=== PATIENT | male | born 1955 | race Caucasian/White ===

== ENCOUNTER 2020-04-30 10:58 | Outpatient (CLI) | payer SELFPAY ==
--- NOTE | 2020-04-30 11:03 | XR_ITS ---
WS: [id number] XR chest 2V* [id number] REASON FOR EXAM: COUGH/FEVER FINDINGS: Compared with previous examination of 05/15/2018, there is a linear opacity in the left axillary ciro on. There is subtle increased density in the right periphery of the mid right lung the axillary level . The heart and mediastinum are within normal limits. The bony thorax is intact. XR/XR chest 2V* [id number] IMPRESSION: Bilateral lung abnormalities as above. Chronicity of these changes is uncertain . Abnormality on the left has more the appearance of platelike atelectasis yang luis alberto the abnormality on the right is more suggestive of a developing infiltrativ e process. Follow-up upright PA and lateral chest as clinically warranted.
== END 2020-04-30 10:59 | disposition home or self-care (01) ==
LOC: RAD 11:00
PROVIDERS: Visit Provider Nurse Practitioner Family
DX: R05 Cough (principal); R50.9 Fever, unspecified
CPT/HCPCS: 71046

== ENCOUNTER 2020-05-30 10:41 | Outpatient (CLI) | payer SELFPAY ==
--- NOTE | 2020-05-30 11:11 | CT_ITS ---
WS: [id number] CT scan of the abdomen without Oral and IV contrast. Additional two-dimensional coronal and sagittal reconstruction was performed. 05/30/2020 Clinical Data: ABDOMINAL BLOATING AND PAIN Comparison: None. DLP: 858.[address] scans at [facility] use at least one of these dose optimization techniques: automat ed exposure control; mA and/or kV adjustment per patient size (includes targeted exams where dose is matched to clinical indication); or iterative reconstruction. Findings: Patchy opacities in the lungs may indicate pneumonia. The lower lungs show no nodules, mass es or effusions. The liver, gallbladder, spleen and pancreas are normal. There is a adrenal nodule on the right measur ing 2.57 cm. The left adrenal is normal. The kidneys show no masses, hydronephrosis or renal calculi. There is probably a cyst at the superior pole of the right kidney measuring 2.9 cm The abdominal aorta is normal in size. No appendicitis is seen. The stomach, small bowel and visualized colon show no abnormalities. No abscess, adenopathy, ascites, mass, obstruction or free air is seen.. 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 CT/CT abdomen wo con [id number] Impression: 1. Patchy opacities in both lower lobes which may indicate minimal pneumonia. 2. Negative for acute intra-abdominal abnormalities.
[2020-05-30 12:43] LABS: Basophils # 0.1 10^3/uL (0.0-0.1); Eosinophils # 0.4 10^3/uL (0.0-0.8); Eosinophils % 6.6 %; Hematocrit 41.5 % (42.0-52.0); Hemoglobin 13.3 g/dL (11.7-16.6); Lymphocytes # 1.7 10^3/uL (0.8-4.8); Lymphocytes % 28.9 %; Mean Corpuscular Hemoglobin 27.9 pg (28.0-34.0); Mean Platelet Volume 8.6 fL (7.4-10.4); Monocytes # 0.9 10^3/uL (0.2-0.9); Monocytes % 14.4 %; Neutrophils # 2.83 10^3/uL (1.8-7.7); Neutrophils % 47.9 %; Nucleated Red Blood Cells % 0 %; Platelet Count 365 10^3/cmm (130-400); Red Blood Count 4.77 10^6/uL (4.1-5.3); Red Cell Distribution Width 14.2 % (12.1-15.1); White Blood Count 5.9 10^3/uL (4.0-10.0)
[2020-05-30 13:02] LABS: Alanine Aminotransferase 78 U/L (0-41); Albumin Level 4.3 g/dL (3.5-5.2); Alkaline Phosphatase 57 IU/L (40-130); Amylase 33 U/L (28-100); Anion Gap 11.4 (5-19); Aspartate Amino Transferase 33 U/L (0-40); Blood Urea Nitrogen 17 mg/dL (8-23); Calcium 9.4 mg/dL (8.5-10.5); Carbon Dioxide 28 mmol/L (22-29); Chloride 103 mmol/L (98-107); Globulin 2.4 g/dL (1.3-4.6); Glomerular Filtration Rate 113.5 mL/min (90-130); Glucose 108 mg/dL (65-115); Lipase 24 U/L (13-60); Osmolality Calculated 288 mOsm/kg (285-295); Potassium 4.4 mmol/L (3.5-5.1); Sodium 138 mmol/L (136-145); Total Bilirubin 0.3 mg/dL (0.15-1.2); Total Protein 6.7 g/dL (6.6-8.7)
[2020-05-30 13:12] LABS: Estmated Average Glucose 140; Hemoglobin A1C 6.5 % (4.0-6.0)
== END 2020-05-30 10:42 | disposition home or self-care (01) ==
PROVIDERS: PCP Nurse Practitioner Family; Visit Provider Nurse Practitioner Family
DX: R14.0 Abdominal distension (gaseous) (principal); R10.9 Unspecified abdominal pain
CPT/HCPCS: 74150; 80053; 82150; 83036; 83690; 85025

== ENCOUNTER 2020-11-20 11:34 | Outpatient (CLI) | payer MEDICARE, MEDICAID, SELFPAY ==
--- NOTE | 2020-11-20 11:43 | CT_ITS ---
WS: [id number] CT ABDOMEN PELVIS TECHNIQUE: Noncontrast CT of the abdomen and pelvis with coronal and sagittal reformatted images. CLINICAL INFORMATION: ADRENAL ENLARGEMENT, RIGHT, RENAL CYST, RIGHT COMPARISON: CT May 30, 2020 DLP: 1228.[address] scans at [facility] use at least one of these dose optimization techniques: automat ed exposure control; mA and/or kV adjustment per patient size (includes targeted exams where dose is matched to clinical indication); or iterative reconstruction. FINDINGS: Previously described small low-attenuation right adrenal nodule measures 2 cm today unchanged from pr evious. Low-attenuation lesion upper pole right kidney measures 3.1 x 3.0 cm unchanged from previous. This is technically indeterminant on this noncontrast CT and recommend further evaluation with ultra sound. Otherwise no significant changes from previous. Noncontrast liver is normal. Normal noncontrast gallb ladder. Normal GE junction. Lung bases are well aerated. Noncalcified nodule right upper lobe measuri ng 5 mm. This is unchanged from May 30, 2020. Fatty atrophy of the pancreas. Normal noncontrast spleen. Normal caliber abdominal aorta. Normal sigmoid colon. No evidence of small or large bowel obs truction. No free fluid in the abdomen or pelvis. Tiny fat-containing inguinal hernia. Disc space cristy rowing worse L4-L5 and L5-S1. CT/CT abdomen pelvis wo con [id number] IMPRESSION: 1. Small right adrenal nodule measuring 2.0 cm is unchanged from previous exam ination. 2. Low-attenuation lesion upper pole right kidney measuring 3.0 x 3.1 cm is al so unchanged. This is technically indeterminant on this noncontrast CT and chrissie mmend further evaluation with ultrasound to assess solid versus cystic contents . 3. 5 mm noncalcified nodule right upper lobe is unchanged. 4. No other significant changes from previous.
== END 2020-11-20 11:35 | disposition home or self-care (01) ==
PROVIDERS: PCP Nurse Practitioner Family; Visit Provider Internal Medicine
DX: E27.8 Other specified disorders of adrenal gland (principal); N28.1 Cyst of kidney, acquired
CPT/HCPCS: 74176

== ENCOUNTER 2021-01-14 07:37 | Outpatient (CLI) | payer MEDICARE, MEDICAID, SELFPAY ==
--- NOTE | 2021-01-14 07:43 | US_ITS ---
WS: [id number] RENAL ULTRASOUND HISTORY: R RENAL CYST COMPARISON: 11/20/2020 TECHNIQUE: 2-D and color Doppler imaging of the kidney submitted. Right kidney: 11.6 cm x 5.1 cm x 4.8 cm. Normal size kidney. No hydronephrosis. Simple cyst noted in the upper pole of the RIGHT kidney measur es 2.9 x 3.1 x 2.6 cm. This corresponds to the complex cyst seen on the CT. Left kidney: 12.6 cm x 4.0 cm x 4.4 cm. Normal echogenicity with no hydronephrosis or mass. Aorta: Normal. Urinary Bladder: Normal distention. US/US renal BI* [id number] IMPRESSION: 1. No hydronephrosis or solid mass. 2. Simple cyst RIGHT kidney with a maximum diameter 3.1 cm.
== END 2021-01-14 07:38 | disposition home or self-care (01) ==
LOC: US 07:39
PROVIDERS: PCP Internal Medicine; Visit Provider Internal Medicine
DX: N28.1 Cyst of kidney, acquired (principal)
CPT/HCPCS: 76770

== ENCOUNTER 2021-03-16 13:47 | Outpatient (CLI) | payer MEDICARE, MEDICAID, SELFPAY ==
--- NOTE | 2021-03-16 14:00 | CT_ITS ---
WS: [id number] CT ABDOMEN PELVIS TECHNIQUE: Noncontrast CT of the abdomen and contrast-enhanced CT of the abdomen and pelvis with pineda nal and sagittal reformatted images. CLINICAL INFORMATION: RIGHT ADRENAL MASS COMPARISON: CT November 20, 2020 and ultrasound January 14, 2021 DLP: 6264.[address] scans at [facility] use at least one of these dose optimization techniques: automated e xposure control; mA and/or kV adjustment per patient size (includes targeted exams where dose is matc hed to clinical indication); or iterative reconstruction. FINDINGS: Diffuse fatty infiltration liver. Normal portal vein and splenic vein. Normal GE junction. Normal spl een. Lung bases are well aerated. Noncalcified nodule right upper lobe measuring 4 mm. This is unchan ged. Stable right adrenal nodule is unchanged measuring 2.0 cm. Normal renal parenchymal enhancement. No h ydronephrosis. Normal excretion on the delayed images. No obstructing renal or ureteral calculi. Norm al bladder. Simple right renal cyst measuring 3.1 CM. Incidental peripelvic left renal cysts. Fatty atrophy of the pancreas. Normal caliber abdominal aorta. Normal sigmoid colon. No evidence of h igh-grade small or large bowel obstruction. Incidental fat-containing umbilical hernia. No abdominal or pelvic lymphadenopathy. No inguinal lymphadenopathy. Disc space narrowing L4-L5 and L5-S1. CT/CT abdomen pelvis wo/w [id number] IMPRESSION: 1. Normal bilateral renal parenchymal enhancement. No hydronephrosis. 2. Normal excretion on the delayed images. 3. Simple right renal cortical cyst measuring 3.1 CM. Incidental peripelvic le ft renal cysts. 4. Stable right adrenal nodule measuring 2.0 cm. 5. Diffuse fatty infiltration of the liver. 6. Stable noncalcified nodule right upper lobe measuring 4 mm. 7. Normal bladder filling on the delayed images.
[2021-03-16] MEDS: iohexol 300 mg/mL 100 mL Btl IV (14:28)
== END 2021-03-16 13:48 | disposition home or self-care (01) ==
LOC: CT 13:56
PROVIDERS: PCP Internal Medicine; Visit Provider Urology
DX: E27.8 Other specified disorders of adrenal gland (principal); N28.1 Cyst of kidney, acquired; K76.0 Fatty (change of) liver, not elsewhere classified; R91.1 Solitary pulmonary nodule
CPT/HCPCS: 74178

== ENCOUNTER → 2021-03-20 09:29 | Outpatient (BNVA) | payer MEDICARE, MEDICAID, SELFPAY | PROVIDERS: PCP Internal Medicine; Visit Provider Urology | DX: E27.8 Other specified disorders of adrenal gland (principal) | CPT/HCPCS: 81003 ==

== ENCOUNTER 2021-07-24 15:43 | Outpatient (CLI) | payer MEDICARE, MEDICAID, SELFPAY ==
--- NOTE | 2021-07-24 16:01 | XRR_ITS ---
PROCEDURE INFORMATION: Exam: XR Chest Exam date and time: 07/24/2021 4:01 PM Age: 65 years old Clinical indication: Cough TECHNIQUE: Imaging protocol: XR of the chest. Views: 2 views. COMPARISON: CR XR chest 2V* [id number] 04/30/2020 11:12 AM FINDINGS: Lungs: Unremarkable. No consolidation. Pleural spaces: Unremarkable. No pleural effusion. No pneumothorax. Heart/Mediastinum: Unremarkable. No cardiomegaly. Bones/joints: Unremarkable. XR/XR chest 2V* [id number] IMPRESSION: No acute findings.
== END 2021-07-24 15:44 | disposition home or self-care (01) ==
PROVIDERS: PCP Internal Medicine; Visit Provider Nurse Practitioner Family
DX: R05.9 Cough, unspecified (principal)
CPT/HCPCS: 71046

== ENCOUNTER 2022-01-14 02:19 | Emergency (ER) | payer MEDICARE, MEDICAID, SELFPAY ==
[2022-01-14 02:19] VITALS: BP 115/65; PULSE 66; RESP 17; TEMP 36.4; O2SAT 96; BMI 28.7
--- NOTE | 2022-01-14 02:28 | CTR_ITS ---
PROCEDURE INFORMATION: Exam: CT Head Without Contrast Exam date and time: 01/14/2022 2:47 AM Age: 66 years old Clinical indication: Syncope and collapse; Patient HX: Syncopal episode at home while going to bathroom. Small lac to RT parietal. TECHNIQUE: Imaging protocol: Computed tomography of the head without contrast. Radiation optimization: All CT scans at this facility use at least one of these dose optimization techniques: automated exposure control; mA and/or kV adjustment per patient size (includes targeted exams where dose is matched to clinical indication); or iterative reconstruction. COMPARISON: CT head wo con* [id number] 05/15/2018 1:33 PM RADIATION DOSE METRICS: Total DLP (mGy-cm): 1147.28 FINDINGS: Brain: No acute intracranial hemorrhage or mass effect. There is very mild decreased attenuation in the periventricular white matter, likely from microvascular disease. No definite acute infarct by CT. MRI could be more sensitive/specific for detection, as clinically directed. Cerebral ventricles: Ventricle size is normal for age. Paranasal sinuses: Mild mucosal thickening in the included upper left ethmoid sinus. Included paranasal sinuses otherwise appear essentially clear. Mastoid air cells: No significant acute finding. Bones/joints: No definite acute skull fracture. Soft tissues: No significant acute finding. CT/CT head wo con* [id number] IMPRESSION: 1. No acute intracranial hemorrhage or mass effect. 2. No definite acute infarct by CT, see above. 3. Other findings discussed above.
--- NOTE | 2022-01-14 02:28 | ECG_ITS ---
[facility] Test Date: 2022-01-14 Pat Name: Renaldo Lopez Department: Room: Gender: Male [employer]: : 1955 Requested By: Matthew Zazueta Order Number: [id number] Katie MD: Cyndi Puentes M.D. Measurements Intervals [place] Rate: 67 P: 46 MT: 185 QRS: 32 QRSD: 100 T: 4 QT: 395 QTc: 419 Interpretive Statements SINUS RHYTHM NONSPECIFIC T-WAVE ABNORMALITY Compared to ECG 05/15/2018 16:21:31 T-wave abnormality now present Sinus bradycardia no longer present Electronically Signed On 01-14-2022 21:13:58 CDT by Cyndi Puentes M.D. [email or web address]
--- NOTE | 2022-01-14 02:28 | XRR_ITS ---
PROCEDURE INFORMATION: Exam: XR Chest Exam date and time: 01/14/2022 2:59 AM Age: 66 years old Clinical indication: Other: Syncope; Patient HX: Syncopal episode TECHNIQUE: Imaging protocol: Radiologic exam of the chest. Views: 1 view. COMPARISON: CR XR chest 2V* [id number] 07/24/2021 4:05 PM FINDINGS: Lungs: The lung parenchyma is clear. Pleural spaces: No pneumothorax. No pleural effusion. Heart/Mediastinum: The cardiomediastinal silhouette is within normal limits. Bones/joints: Unremarkable. XR/XR chest 1V portable [id number] IMPRESSION: No acute cardiopulmonary abnormality.
--- NOTE | 2022-01-14 02:28 | W.ED.SYNCOPE ---
HPI - Syncope General: Chief Complaint: Syncope Stated Complaint: SYNCOPE Time Seen by Provider: 01/14/22 02:27 History of Present Illness: Mr. Lopez is a 66-year-old gentleman without significant past medical history presents to the emergency department due to syncope x2. He apparently has been at his baseline health however has been outside in the heat in the mornings working. Last night he was sleeping on the couch and got up and fell in the bathroom. He recalls feeling lightheaded but does not recall the falls. He looked pale upon family seeing him and he had recurrence once getting back to the living room. He denies associated chest pain, or shortness of breath. Mild increase discomfort regarding known inguinal hernia that this is improved. No changes in bowel habits. Overall course of symptoms has improved. Current intensity symptoms is very mild. No other specific changes in health, exacerbating, or alleviating factors identified. 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 Family History Brother Cancer Social History Alcohol intake: never Marital status: Current occupational status: retired Physical Exam Const: COMMON NORMALS: patient oriented x3 and alert GENERAL APPEARANCE: cooperative and well developed HENMT: COMMON NORMALS: normocephalic and atraumatic HEAD & SCALP: normocephalic and atraumatic THROAT: posterior oropharynx normal Eye: COMMON NORMALS: conjunctivae normal CONJUNCTIVA: Yes conjunctivae normal SCLERA: sclerae normal Neck/C-Spine: COMMON NORMALS: supple GENERAL: Yes trachea midline Resp: COMMON NORMALS: normal respiratory effort and clear to auscultation bilaterally EFFORT & INSPECTION: Yes able to speak in complete sentences AUSCULTATION: clear to auscultation bilaterally Cardio: COMMON NORMALS: regular rate and regular rhythm RATE: regular rate RHYTHM: regular rhythm GI: COMMON NORMALS: Soft to palpation PALPATION: Yes Soft to palpation and No Tenderness to palpation present (GI) PERCUSSION: normal to percussion Extremity: GENERAL: Yes normal exam except as noted and No edema Neuro: COMMON NORMALS: patient oriented x3, CN's II-XII intact bilaterally, moves all extremities, no focal motor deficits and no sensory deficits noted SENSORIUM/ORIENTATION: Yes alert and No Orientation impaired Psych: COMMON NORMALS: mental status grossly normal and Normal thought process present THOUGHT PROCESS: Normal thought process present Skin: NARRATIVE SKIN EXAM: Small skin tear noted without repairable laceration identified Course ED course: - Patient was seen and evaluated by me at bedside - Patient placed on cardiac monitors, IV access obtained - Initial evaluation notable for exam as above, no focal neurodeficits - Labs and xrays personally interpreted by me. EKG with nonspecific ST segment abnormality. No STEMI. -Tdap and fluids given - Labs notable for no significant abnormality to explain symptoms - Imaging notable for no lobar consolidation or pneumothorax. No acute trauma noted on CT head, neck, abdomen/pelvis. - Upon serial reexamination after treatment the patient was improved. He ambulated without difficulty. - Based on patient history, evaluation, and testing as interpreted the most likely cause of the patient's condition is syncope of uncertain etiology, perhaps related to earlier overexertion - The results of ED evaluation were discussed with the patient including possible disposition options. I offered admission as I am uncertain of the exact cause of patient's symptoms however he is comfortable with discharge and further outpatient follow-up. I discussed prescriptions and/or symptomatic cares (if applicable) including appropriate and responsible use, followup plan, and return precautions. The patient verbalized understanding and felt safe for discharge. - Patient discharged in satisfactory condition. Note: Click bubbles or prepopulated shin in note writing are used for assistance with data collection and billing and are inherently more limited than narrative and other text portions of this note. Please use narrative for additional clinical history and defer to narrative/free test for any case of contradictory information. If information appears in only free text or click bubble it should be considered present or absent as reported. Please contact note medical writer for clarifications of clinical information or contradictory information. MDM is a brief summary, contradictory or erroneous seeming information should be clarified and full note should be reviewed. Vital Signs: Vital signs: Vital Signs Temperature 97.5 F L 01/14/22 02:19 Pulse Rate 67 01/14/22 04:00 Respiratory Rate 15 01/14/22 04:00 Blood Pressure 111/70 01/14/22 04:00 Pulse Oximetry 92 01/14/22 04:00 Oxygen Delivery Me thod 01/14/22 03:30 MDM - Syncope Medical Decision Making 66-year-old gentleman presenting after syncope x2 preceded by lightheadedness. No clear etiology identified on evaluation. Patient prefers outpatient management. Satisfactory for outpatient management with strict return cautions. Medical Records I reviewed the patient's medical records. Lab Data I reviewed the patient's lab results. : 01/14/22 02:34 01/14/22 02:34 Radiology Impressions Chest X-Ray 01/14/22 02:28 IMPRESSION: No acute cardiopulmonary abnormality. Head CT 01/14/22 02:28 IMPRESSION: 1. No acute intracranial hemorrhage or mass effect. 2. No definite acute infarct by CT, see above. 3. Other findings discussed above. Abdomen/Pelvis CT 01/14/22 02:43 IMPRESSION: 1. No acute abdominopelvic abnormality identified. 2. Colonic diverticulosis without signs of acute diverticulitis. COMMENTS: Consistent with the [place] [employer]'s Incidental Findings Committee white paper (J Am Toan Radiol 2018): Any incidental renal lesion less than 1 cm or classified as too small to characterize, or any incidental cystic renal lesion characterized as simple-appearing, is likely benign. No follow-up imaging is recommended for these lesions per consensus recommendations based on imaging criteria. Cervical Spine CT 01/14/22 02:43 IMPRESSION: 1. No definite acute fracture or post traumatic subluxation by CT. 2. Other findings discussed above. Laboratory Results WBC 8.3 10^3/uL (4.0-10.0) 01/14/22 02:34 RBC 5.13 10^6/uL (4.1-5.3) 01/14/22 02:34 Hgb 14.8 g/dL (11.7-16.6) 01/14/22 02:34 Hct 45.9 % (42.0-52.0) 01/14/22 02:34 MCV 89.5 fl (80-94) 01/14/22 02:34 MCH 28.8 pg (28.0-34.0) 01/14/22 02:34 MCHC 32.2 g/dL (30.0-36.0) 01/14/22 02:34 RDW 12.2 % (12.1-15.1) 01/14/22 02:34 Plt Count 234 10^3/cmm (130-400) 01/14/22 02:34 MPV 9.2 fL (7.4-10.4) 01/14/22 02:34 Neut % (Auto) 64.4 % 01/14/22 02:34 Lymph % (Auto) 17.8 % 01/14/22 02:34 [place] % (Auto) 13.8 % 01/14/22 02:34 Eos % (Auto) 3.3 % 01/14/22 02:34 Baso % (Auto) 0.5 % 01/14/22 02:34 Neut # (Auto) 5.33 10^3/uL (1.8-7.7) 01/14/22 02:34 Lymph # (Auto) 1.5 10^3/uL (0.8-4.8) 01/14/22 02:34 [place] # (Auto) 1.1 10^3/uL (0.2-0.9) H 01/14/22 02:34 Eos # (Auto) 0.3 10^3/uL (0.0-0.8) 01/14/22 02:34 Baso # (Auto) 0.0 10^3/uL (0.0-0.1) 01/14/22 02:34 Nucleated RBC % (auto) 0 % 01/14/22 02:34 Nucleated RBCs # 0.0 /100WBC 01/14/22 02:34 Sodium 141 mmol/L (136-145) 01/14/22 02:34 Potassium 3.8 mmol/L (3.5-5.1) 01/14/22 02:34 Chloride 105 mmol/L (98-107) 01/14/22 02:34 Carbon Dioxide 24 mmol/L (22-29) 01/14/22 02:34 Anion Gap 15.8 (5-19) 01/14/22 02:34 BUN 33 mg/dL (8-23) H 01/14/22 02:34 Creatinine 0.8 mg/dL (0.7-1.2) 01/14/22 02:34 GFR Calculation 96.7 mL/min (90-130) 01/14/22 02:34 Glucose 100 mg/dL (65-115) 01/14/22 02:34 Calculated Osmolality 299 mOsm/kg (285-295) H 01/14/22 02:34 Calcium 9.3 mg/dL (8.5-10.5) 01/14/22 02:34 Total Bilirubin 0.5 mg/dL (0.15-1.2) 01/14/22 02:34 AST 20 U/L (0-40) 01/14/22 02:34 ALT 18 U/L (0-41) 01/14/22 02:34 Alkaline Phosphatase 56 IU/L (40-130) 01/14/22 02:34 Troponin T Baseline 13 ng/L (0-15) 01/14/22 02:34 Troponin T 120 Minute 14.02 ng/L (0-15) 01/14/22 04:57 Delta Troponin T 1.02 ABS# (0-10) 01/14/22 04:57 Total Protein 6.7 g/dL (6.6-8.7) 01/14/22 02:34 Albumin 4.4 g/dL (3.5-5.2) 01/14/22 02:34 Globulin 2.3 g/dL (1.3-4.6) 01/14/22 02:34 Discharge Plan Discharge Patient Disposition: Home Clinical Impression: Syncope Condition: Stable Prescriptions: No Action simvastatin 10 mg tablet 10 mg PO .HS aspirin [Adult Aspirin Regimen] 81 mg tablet,delayed release (DR/EC) 81 mg PO DAILY Discharge Orders: Discharge ED (Routine); Ordered 01/14/22 Ordered By: Beka Ware Referrals: aSrah Perry MD [Primary Care Provider] - Discharge Diet: Usual diet Discharge Activity: Increase activity as tolerated Patient Instructions: Syncope (ED) Activity Restrictions/Additional Instructions: Thank you for visiting the emergency department. You were seen and evaluated for syncope. The exact cause of your symptoms is unclear. Please ensure that you are staying hydrated. Please follow-up with your primary care provider. Please return to the emergency department for recurrent symptoms, chest pain, shortness of breath, any new neurologic symptoms, or anything else that you are concerned about a feel needs emergency department evaluation. Coding Level of Care Code ED Clinical Nurse Specialist for Melly Santacruz
[2022-01-14 02:38] LABS: Basophils % 0.5 %; Eosinophils # 0.3 10^3/uL (0.0-0.8); Eosinophils % 3.3 %; Hematocrit 45.9 % (42.0-52.0); Hemoglobin 14.8 g/dL (11.7-16.6); Lymphocytes # 1.5 10^3/uL (0.8-4.8); Lymphocytes % 17.8 %; Mean Corpuscular HGB Conc 32.2 g/dL (30.0-36.0); Mean Corpuscular Hemoglobin 28.8 pg (28.0-34.0); Mean Corpuscular Volume 89.5 fl (80-94); Mean Platelet Volume 9.2 fL (7.4-10.4); Monocytes # 1.1 10^3/uL (0.2-0.9); Monocytes % 13.8 %; Neutrophils # 5.33 10^3/uL (1.8-7.7); Neutrophils % 64.4 %; Nucleated Red Blood Cells % 0 %; Platelet Count 234 10^3/cmm (130-400); Red Blood Count 5.13 10^6/uL (4.1-5.3); Red Cell Distribution Width 12.2 % (12.1-15.1); White Blood Count 8.3 10^3/uL (4.0-10.0)
--- NOTE | 2022-01-14 02:43 | CTR_ITS ---
PROCEDURE INFORMATION: Exam: CT Cervical Spine Without Contrast Exam date and time: 01/14/2022 2:50 AM Age: 66 years old Clinical indication: Other: Syncope; Patient HX: Syncopal episode at home while going to bathroom. Small lac to RT parietal. ; Additional info: Fall TECHNIQUE: Imaging protocol: Computed tomography of the cervical spine without contrast. Radiation optimization: All CT scans at this facility use at least one of these dose optimization techniques: automated exposure control; mA and/or kV adjustment per patient size (includes targeted exams where dose is matched to clinical indication); or iterative reconstruction. COMPARISON: No relevant prior studies available. RADIATION DOSE METRICS: Total DLP (mGy-cm): 262.87 FINDINGS: Bones/joints: On axial CT images, no definite acute fracture is visible. Sagittal and coronal reconstructions show no acute fracture or post traumatic subluxation. Moderate to severe facet joint arthritis at multiple levels. Mild, 1-2 mm of anterior subluxation of C7 relative to T1. No visible fracture. Prominent facet joint arthritis at this level is the likely etiology. Discs/Spinal canal/Neural foramina: Mild to moderate degenerative disc changes at several levels. No definite/significant disc herniation by CT, MRI could be more sensitive if clinically indicated. Lungs: No significant acute finding in the upper lungs. CT/CT cervical spin wo con* [id number] IMPRESSION: 1. No definite acute fracture or post traumatic subluxation by CT. 2. Other findings discussed above.
--- NOTE | 2022-01-14 02:43 | CTR_ITS ---
PROCEDURE INFORMATION: Exam: CT Abdomen And Pelvis Without Contrast Exam date and time: 01/14/2022 2:54 AM Age: 66 years old Clinical indication: Abdominal pain; Localized; Lower; Patient HX: C/O RT groin pain. History of RT adrenal mass. ; Additional info: R groin pain, hernia TECHNIQUE: Imaging protocol: Computed tomography of the abdomen and pelvis without contrast. Radiation optimization: All CT scans at this facility use at least one of these dose optimization techniques: automated exposure control; mA and/or kV adjustment per patient size (includes targeted exams where dose is matched to clinical indication); or iterative reconstruction. COMPARISON: CT abdomen pelvis wo/w [id number] 03/16/2021 2:19 PM RADIATION DOSE METRICS: Total DLP (mGy-cm): 1276.06 FINDINGS: Lungs: The visualized lung bases demonstrate no focal airspace opacification or pleural effusion. Heart: The visualized heart is within normal limits for size. There is no evidence of pericardial abnormality. Liver: The liver is normal in size and contour. Gallbladder and bile ducts: The gallbladder is distended with normal wall thickness and does not demonstrate calcified gallstones. No intra- or extra-hepatic biliary ductal dilatation. Pancreas: The pancreas appears normal. Spleen: The spleen appears normal. Adrenal glands: Stable nodularity of the right adrenal gland again noted, unchanged from prior exams. The left adrenal gland appears unremarkable. Kidneys and ureters: Cyst measuring 3.6 cm in 25 Hounsfield units again noted in the anterior interpolar region of the right kidney similar to prior exams. Left renal sinus cysts noted. No signs of urinary obstruction. Stomach and bowel: The stomach appears unremarkable. The small bowel loops are not abnormally dilated. The large bowel loops are not abnormally dilated. Colonic diverticulosis without signs of acute diverticulitis. Appendix: The appendix appears normal. Intraperitoneal space: No ascites or significant fluid collection. Vasculature: The aorta is nonaneurysmal. The IVC appears normal. Lymph nodes: There are no enlarged lymph nodes. Urinary bladder: The bladder is distended and demonstrates no focal contour abnormality. Reproductive: Unremarkable as visualized. Bones/joints: Multilevel degenerative disc disease. Soft tissues: Unremarkable. CT/CT abdomen pelvis wo con [id number] IMPRESSION: 1. No acute abdominopelvic abnormality identified. 2. Colonic diverticulosis without signs of acute diverticulitis. COMMENTS: Consistent with the [employer]'s Incidental Findings Committee white paper (J Am Toan Radiol 2018): Any incidental renal lesion less than 1 cm or classified as too small to characterize, or any incidental cystic renal lesion characterized as simple-appearing, is likely benign. No follow-up imaging is recommended for these lesions per consensus recommendations based on imaging criteria.
[2022-01-14 03:02] LABS: Troponin(5th) Baseline 13 ng/L (0-15)
[2022-01-14 03:03] LABS: Alanine Aminotransferase 18 U/L (0-41); Albumin Level 4.4 g/dL (3.5-5.2); Alkaline Phosphatase 56 IU/L (40-130); Anion Gap 15.8 (5-19); Aspartate Amino Transferase 20 U/L (0-40); Blood Urea Nitrogen 33 mg/dL (8-23); Calcium 9.3 mg/dL (8.5-10.5); Carbon Dioxide 24 mmol/L (22-29); Chloride 105 mmol/L (98-107); Globulin 2.3 g/dL (1.3-4.6); Glomerular Filtration Rate 96.7 mL/min (90-130); Glucose 100 mg/dL (65-115); Osmolality Calculated 299 mOsm/kg (285-295); Potassium 3.8 mmol/L (3.5-5.1); Sodium 141 mmol/L (136-145); Total Bilirubin 0.5 mg/dL (0.15-1.2); Total Protein 6.7 g/dL (6.6-8.7)
[2022-01-14 03:14] VITALS: BP 111/69; PULSE 63; RESP 14; O2SAT 90
[2022-01-14 03:17] VITALS: BP 111/69; BP 111/71; BP 115/71; PULSE 66; PULSE 69; PULSE 73
[2022-01-14 03:30] VITALS: BP 119/76; PULSE 65; RESP 14; O2SAT 90
[2022-01-14 04:00] VITALS: BP 111/70; PULSE 67; RESP 15; O2SAT 92
--- NOTE | 2022-01-14 04:28 | ECG_ITS ---
[facility] Test Date: 2022-01-14 Pat Name: Renaldo Lopez Department: Room: Gender: Male Portrait Artist: : 1955 Requested By: Matthew Zazueta Order Number: [id number] Katie MD: Cyndi Puentes M.D. Measurements Intervals Alliance Rate: 64 P: 44 DC: 177 QRS: 34 QRSD: 101 T: 16 QT: 410 QTc: 425 Interpretive Statements SINUS RHYTHM Compared to ECG 01/14/2022 02:34:09 T-wave abnormality no longer present Electronically Signed On 01-14-2022 21:19:31 CDT by Cyndi Puentes M.D. [email or web address] [email or web address] river gulfportTinker Squaremercy health willard hospitalTotus [id number]
[2022-01-14 05:20] LABS: Troponin 5 2HR 14.02 ng/L (0-15)
[2022-01-14 05:33] LABS: Troponin 5 2HR Delta 1.02 ABS# (0-10)
--- NOTE | 2022-01-14 05:46 | PC.NURSE ---
NS not given per Dr verbal order.
--- NOTE | 2022-01-14 11:52 | DCPLANNER ---
Addendum entered by Susan Felder 07/06/22 12:50: Patient had an echo and a carotid ultrasound - patient attended both appointments Original Note: facilities engineering manager had message to schedule an outpatient echo cardiogram and ultrasound for patient. facilities engineering manager faxed signed order to centralized scheduling, who will call patient with appointment information.
== END 2022-01-14 05:56 | disposition home or self-care (01) ==
PROVIDERS: Nurse Practitioner Family; Emergency Provider Emergency Medicine; PCP Internal Medicine
DX: R55 Syncope and collapse (principal); Z79.82 Long term (current) use of aspirin
CPT/HCPCS: 70450; 71045; 72125; 74176; 80053; 84484; 85025; 93005; 99285

== ENCOUNTER 2022-03-18 07:54 | Outpatient (CLI) | payer MEDICARE, MEDICAID, SELFPAY ==
--- NOTE | 2022-03-18 08:15 | CT_ITS ---
WS: [id number] CT ABDOMEN TECHNIQUE: Noncontrast CT of the abdomen with coronal and sagittal reformatted images. CLINICAL INFORMATION: Right Adrenal Mass COMPARISON: CT January 14, 2022 DLP: 754.[address] scans at [facility] use at least one of these dose optimization techniques: automated e xposure control; mA and/or kV adjustment per patient size (includes targeted exams where dose is matc hed to clinical indication); or iterative reconstruction. 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 This is unchanged from prior examinations. LEFT adrenal gland is normal.Stable anterior RIGHT renal cyst measuring 3.1 cm is unchanged March 16, 2021 and ultrasound January 14, 2021 Noncontrast liver is normal. Gallbladder appears normal. Lung bases are well aerated. Small peripelvi c renal cysts.. Noncontrast spleen is normal. Noncontrast pancreas is normal. Normal caliber abdomina l aorta. Small fat-containing umbilical hernia. Partially visualized colonic diverticulosis. CT/CT abdomen wo con [id number] IMPRESSION: 1. RIGHT adrenal nodule lesion measuring 2.5 cm is unchanged since May with Hounsfield units measuring 15-20 technically indeterminant but like ly lipid poor adenoma. This could be further evaluated with adrenal washout CT for more definitive assessment if desired. 2. LEFT adrenal gland is normal. 3. Stable anterior RIGHT renal cyst measuring 3.1 cm 4. Fat-containing umbilical hernia. 5. Partially visualized colonic diverticulosis. 6. No other acute findings.
== END 2022-03-18 07:55 | disposition home or self-care (01) ==
PROVIDERS: PCP Internal Medicine; Visit Provider Urology
DX: E27.8 Other specified disorders of adrenal gland (principal)
CPT/HCPCS: 74150; 99212

== ENCOUNTER → 2022-03-22 09:50 | Outpatient (BNVA) | payer MEDICARE, MEDICAID, SELFPAY | PROVIDERS: PCP Internal Medicine; Visit Provider Urology | DX: E27.8 Other specified disorders of adrenal gland (principal) | CPT/HCPCS: 81003 ==

== ENCOUNTER 2022-04-16 13:29 | Outpatient (CLI) | payer MEDICARE, MEDICAID, SELFPAY ==
--- NOTE | 2022-04-16 13:00 | USCV_ITS ---
John, Renaldo Age: 66 Gender: M : 1955 Exam Date: 04/16/2022 13:49 Ordering Phys: Beka Ware MD Technologist: Netta Hannah [place]am Location[place] [facility] [place]: Syncope BP: / HR: 59 Rhythm: Sinus Technical Quality: Good MEASUREMENTS (Male / Female) Normal Values 2D ECHO LV Diastolic Diameter PLAX 4.3 cm 4.2 - 5.9 / 3.9 - 5.3 cm LV Systolic Diameter PLAX 3.1 cm IVS Diastolic Thickness 1.2 cm 0.6 - 1.0 / 0.6 - 0.9 cm IVS Systolic Thickness 1.3 cm LVPW Diastolic Thickness 0.9 cm 0.6 - 1.0 / 0.6 - 0.9 cm LVPW Systolic Thickness 1.6 cm LVOT Diameter 2.0 cm LV Ejection Fraction 2D Teich 56.7 % LV Ejection Fraction MOD 2C 47.4 % LV Ejection Fraction 2C AL 48.0 % LA Diameter 2.4 cm LA Width 3.6 cm LA Height 4.5 cm RA Width 3.4 cm RA Height 4.5 cm Aorta at Sinotubular Diameter 3.1 cm IVC Diameter 1.3 cm M-MODE MV E Point Septal Separation 0.7 cm DOPPLER AV Peak Velocity 109.0 cm/s LVOT Peak Velocity 97.0 cm/s AV Area Cont Eq vti 2.8 cm squared AV Area Cont Eq pk 2.8 cm squared MV Peak Velocity 85.0 cm/s MV Area PHT 2.8 cm squared Mitral E to A Ratio 0.8 MV E' Velocity 34.0 cm/s Mitral E to MV E' Ratio 7.8 Mitral E to LV E' Lateral Ratio 7.3 Mitral E to LV E' Septal Ratio 8.4 TR Peak Velocity 223.0 cm/s TR Peak Gradient 19.9 mmHg Right Atrial Pressure 3.0 mmHg Pulmonary Artery Systolic Pressu 22.9 mmHg RV Acceleration Time 0.1 s RV Ejection Time 0.3 s RV AcT/ET 0.4 FINDINGS Left Ventricle Normal left ventricular size, systolic function and wall thickness, with no regional wall motion abnormalities. Left ventricular ejection fraction is estimated at 60 %. Normal diastolic function. Right Ventricle Normal right ventricular size and systolic function. RVSP could not be calculated due to incomplete tricuspid regurgitation velocity profile. Right Atrium Normal right atrial size. Left Atrium Normal left atrial size. Mitral Valve Structurally normal mitral valve. No mitral valve stenosis. Trace mitral valve regurgitation. Aortic Valve Structurally normal trileaflet aortic valve. No aortic valve stenosis. No aortic valve regurgitation. Tricuspid Valve Structurally normal tricuspid valve. No tricuspid valve stenosis. Trace tricuspid valve regurgitation. Pulmonic Valve Structurally normal pulmonic valve. No pulmonary valve stenosis. No pulmonary valve regurgitation. Pericardium No pericardial effusion. Aorta Normal size aortic root and proximal ascending aorta. IVC Normal IVC dimension with >50% respiratory change of the inferior vena cava. CONCLUSIONS 1. Normal left ventricular size, systolic function and wall thickness, with no regional wall motion abnormalities. Left ventricular ejection fraction is estimated at 60 %. Normal diastolic function. 2. No significant valvular abnormality. 3. When compared to previous study dated 05/24/2018, there has been no significant change. Farnaz Huber MD (Electronically Signed) Final Date: 17 April 2022 06:07 S
--- NOTE | 2022-04-16 14:15 | USCV_ITS ---
John, Renaldo Age: 66 Gender: M : 1955 Exam Date: 04/16/2022 14:09 Ordering Phys: Beka Ware MD Technologist: Netta Hannah [place] [facility] [place]: syncope Risk Factors: None Previous Vascular Surgery: None Right Brachial BP: / Left Brachial BP: / Right Left Velocity (cm/s) Spectral Plaque Velocity (cm/s) Spectral Plaque Syst/Diast Broadening Syst/Diast Broadening 65.30/ 12.40 Prox CCA 81.60 / 17.60 55.90/ 11.70 Mid CCA 58.40 / 14.30 32.00/ 10.70 Distal CCA 62.80 / 17.60 33.10/ 10.10 Prox ICA 65.20 / 18.90 55.90/ 20.40 Mid ICA 52.30 / 21.40 54.00/ 20.70 Distal ICA 61.80 / 24.90 82.90 ECA 77.20 0.86 ICA/CCA 0.80 Antegrade Vertebral Antegrade 31.10/ 12.40 cm/s 28.90/ 9.20 cm/s Tri Subclavian Tri 115.0 90.40 0 FINDINGS Comparison:. 05/24/18. No significant elevation of systolic or diastolic velocities. Waveforms are normal. Minimal bilateral, intimal thickening with no elevation of velocity. Antegrade vertebral arteries. CONCLUSIONS Bilateral ICA stenosis less than 50%. Mild carotid atherosclerosis. Dr. Davina Lopez DO (Electronically Signed) Final Date: 16 April 2022 14:55 S
== END 2022-04-16 13:30 | disposition home or self-care (01) ==
LOC: RAD 13:30
PROVIDERS: PCP Internal Medicine; Visit Provider Emergency Medicine
DX: R55 Syncope and collapse (principal); I65.23 Occlusion and stenosis of bilateral carotid arteries
CPT/HCPCS: 93306; 93880

== ENCOUNTER 2023-05-07 19:33 | Inpatient (IN) | payer MEDICARE, MEDICAID, SELFPAY ==
[2023-05-07 19:36] VITALS: BP 151/70; PULSE 87; RESP 18; TEMP 39.1; O2SAT 95; BMI 29.2
--- NOTE | 2023-05-07 20:42 | XRR_ITS ---
PROCEDURE INFORMATION: Exam: XR Right Knee Exam date and time: 05/07/2023 8:50 PM Age: 67 years old Clinical indication: Right; Patient HX: RT knee pain/swelling; No known injury; Similar previous scenario x 1 TECHNIQUE: Imaging protocol: Radiologic exam of the right knee. Views: 3 views. COMPARISON: No relevant prior studies available. FINDINGS: Bones/joints: Minimal joint space narrowing medially, without significant or prominent joint space narrowing. Minimal spur formation. No fracture or other significant osseous abnormality. No significant suprapatellar fullness or effusion. No findings of chondrocalcinosis. Soft tissues: Mild soft tissue swelling. XR/XR knee RT 3V* [id number] IMPRESSION: Minimal degenerative change. No fracture or acute osseous abnormality.
[2023-05-07 21:05] LABS: Basophils % 0.2 %; Eosinophils # 0.1 10^3/uL (0.0-0.8); Eosinophils % 1.3 %; Hematocrit 44.9 % (37-53); Lymphocytes # 1.3 10^3/uL (0.8-4.8); Lymphocytes % 12.5 %; Mean Corpuscular HGB Conc 32.5 g/dL (30-55); Mean Corpuscular Hemoglobin 28.9 pg (27-33); Mean Corpuscular Volume 88.7 fl (82-101); Mean Platelet Volume 8.9 fL (7.4-10.4); Monocytes # 1.3 10^3/uL (0.2-0.9); Monocytes % 11.9 %; Neutrophils # 7.74 10^3/uL (1.8-7.7); Neutrophils % 73.7 %; Nucleated Red Blood Cells % 0 %; Platelet Count 254 10^3/cmm (157-399); Red Blood Count 5.06 10^6/uL (3.85-5.65); Red Cell Distribution Width 12.5 % (12.1-15.1)
--- NOTE | 2023-05-07 21:14 | W.ED.EXTPRO ---
HPI - Extremity Problem General: Chief complaint: Extremity Injury, Lower Stated complaint: right knee swelling, fever Time Seen by Provider: 05/07/23 20:20 History of Present Illness: 67-year-old male with fairly healthy presents emergency room with fever and right knee pain, swelling and redness for the past 3 days. She described the pain as a throbbing sensation with severity of 6 out of 10 especially with range of motion and bending. Denies any fall, trauma, injury to the area. No numbness or tingling. No calf tenderness, shortness of breath, coughing up blood or vomiting blood. No chest pain. Patient further reviews having similar episode many years ago and was given antibiotics. Associated symptoms: Reports fever(s); Deny chest pain Review of Systems General: Reports: 10 or more systems reviewed and unremarkable except in HPI and below Const: Reports: fever(s), chills and malaise; Denies: body aches or change in weight Card: Denies: chest pain, palpitations, irregular heart rhythm, edema or swelling of feet/ankles Resp: Denies: dyspnea, productive cough, non-productive cough, wheezing, stridor or pain on inspiration GI: Denies: abdominal pain, nausea, vomiting, hematemesis, coffee ground emesis, dysphagia or heartburn : Denies: urinary incontinence, hematuria or penile discharge Musc: Reports: extremity swelling, joint pain, joint swelling, joint redness and joint warmth; Denies: joint stiffness, decrease in muscle mass, loss of height or deformity Skin/Breast: Reports: erythema, skin tenderness and skin swelling Neuro: Denies: headache(s) or numbness in extremities PFSH ED PFSH: Medical History Never smoker Renal cyst, right Right adrenal mass Small, no evidence of functional component, 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 Surgical History History of hernia repair Hx of right inguinal hernia repair Family History Brother Cancer Father , at age 78 Heart disease Mother , at age 60 Stroke Social History Smoking and tobacco/nicotine status: never used tobacco/nicotine Alcohol intake: never Marital status: Current occupational status: retired Physical Exam Const: COMMON NORMALS: no acute distress, average body habitus, patient oriented x3, no limitations, healthy appearing, alert and well nourished Neck/C-Spine: COMMON NORMALS: full ROM, no lymphadenopathy, supple, no meningeal signs, no JVD, Thyroid normal and No carotid bruits THYROID: Thyroid normal Lymph: LYMPHATIC: no lymphadenopathy noted Chest: COMMONS NORMALS: normal inspection of the chest, normal palpation of entire chest wall, normal inspection of the breasts and normal palpation of the breasts Breast/axilla inspection: Yes normal inspection of the breasts BREAST/AXILLA PALPATION: Yes normal palpation of the breasts Resp: COMMON NORMALS: normal respiratory effort, No retractions, No use of accessory muscles, clear to auscultation bilaterally and percussion normal AUSCULTATION: clear to auscultation bilaterally PERCUSSION: percussion normal Cardio: COMMON NORMALS: no JVD : COMMON NORMALS: Yes no CVA tenderness BLADDER/KIDNEY EXAM: Yes no CVA tenderness Back/Pelvis: COMMON NORMALS: no CVA tenderness, thoracic and lumbar spine normal to inspection, no thoracic nor lumbar tenderness, thoraco-lumbar ROM normal and straight leg raise negative bilaterally Extremity: RIGHT LOWER EXTREMITY: Yes knee joint (some pain with full rom ) Right knee: Yes inspection (diffuse swelling,redness ), Yes palpation (tenderness upon palpation ) and Yes ROM Neuro: COMMON NORMALS: patient oriented x3 SENSORIUM/ORIENTATION: Yes alert MENINGEAL SIGNS: Yes no meningeal signs Procedures Joint Aspiration/Injection Joint Asp./Inject. 1: Time Out Performed: Yes Side of body: right Joint Aspirated: knee Ultrasound Guidance: No Skin Prep: Povidone-Iodine1% Local Anesthetic: lidocaine 2% Amount of anesthesia used (mL): 6 Needle Size Used: 18G Fluid Obtained: bloody Total fluid obtained (mL): 25 Patient Tolerated Procedure: well Complications: none Course Consultations: Consultation #1: Discussed patient with hospitalist and recommended consultation with orthopedic Consultation #2: Discussed patient with Vital Signs: Vital signs: Vital Signs Temperature 98.1 F 05/08/23 10:47 Pulse Rate 67 11/12/23 10:47 Respiratory Rate 17 05/08/23 10:47 Blood Pressure 133/77 05/08/23 10:47 Pulse Oximetry 94 05/08/23 10:47 Oxygen Delivery Me thod Room Air 05/08/23 10:47 MDM - Extremity (Nontraumatic) Medical Decision Making Patient made comfortable emergency room. Patient extensive work-up with CBC, CMP, x-ray. Patient was given IV antibiotics. The knee was aspirated and sent for evaluation. Discussed patient with the hospitalist and orthopedic surgeon on-call. Differential Diagnosis Likely herpes zoster, gout, cellulitis, deep venous thrombosis of upper extremity, lower extremity edema and deep vein thrombosis of lower extremity Lab Data 05/07/23 21:00 05/07/23 21:00 Radiology Impressions Knee X-Ray 05/07/23 20:42 IMPRESSION: Minimal degenerative change. No fracture or acute osseous abnormality. Laboratory Results WBC 10.50 10^3/uL (3.29-11.43) 05/07/23 21:00 RBC 5.06 10^6/uL (3.85-5.65) 05/07/23 21:00 Hgb 14.60 g/dL (11.27-16.99) 05/07/23 21:00 Hct 44.9 % (37-53) 05/07/23 21:00 MCV 88.7 fl (82-101) 05/07/23 21:00 MCH 28.9 pg (27-33) 05/07/23 21:00 MCHC 32.5 g/dL (30-55) 05/07/23 21:00 RDW 12.5 % (12.1-15.1) 05/07/23 21:00 Plt Count 254 10^3/cmm (157-399) 05/07/23 21:00 MPV 8.9 fL (7.4-10.4) 05/07/23 21:00 Neut % (Auto) 73.7 % 05/07/23 21:00 Lymph % (Auto) 12.5 % 05/07/23 21:00 [place] % (Auto) 11.9 % 05/07/23 21:00 Eos % (Auto) 1.3 % 05/07/23 21:00 Baso % (Auto) 0.2 % 05/07/23 21:00 Neut # (Auto) 7.74 10^3/uL (1.8-7.7) H 05/07/23 21:00 Lymph # (Auto) 1.3 10^3/uL (0.8-4.8) 05/07/23 21:00 [place] # (Auto) 1.3 10^3/uL (0.2-0.9) H 05/07/23 21:00 Eos # (Auto) 0.1 10^3/uL (0.0-0.8) 05/07/23 21:00 Baso # (Auto) 0.0 10^3/uL (0.0-0.1) 05/07/23 21:00 Nucleated RBC % (auto) 0 % 05/07/23 21:00 Nucleated RBCs # 0.0 /100WBC 05/07/23 21:00 Sodium 136 mmol/L (136-145) 05/07/23 21:00 Potassium 4.4 mmol/L (3.5-5.1) 05/07/23 21:00 Chloride 101 mmol/L (98-107) 05/07/23 21:00 Carbon Dioxide 23 mmol/L (22-29) 05/07/23 21:00 Anion Gap 16.4 (5-19) 05/07/23 21:00 BUN 24 mg/dL (8-23) H 05/07/23 21:00 Creatinine 0.9 mg/dL (0.7-1.2) 05/07/23 21:00 GFR Calculation 84.2 mL/min (90-130) L 05/07/23 21:00 Glucose 108 mg/dL (65-115) 05/07/23 21:00 Calculated Osmolality 287 mOsm/kg (285-295) 05/07/23 21:00 Uric Acid 5.6 mg/dL (3.4-7.0) 05/07/23 21:00 Calcium 9.0 mg/dL (8.5-10.5) 05/07/23 21:00 Total Bilirubin 0.5 mg/dL (0.15-1.2) 05/07/23 21:00 AST 14 U/L (0-40) 05/07/23 21:00 ALT 16 U/L (0-41) 05/07/23 21:00 Alkaline Phosphatase 58 U/L (40-130) 05/07/23 21:00 Total Protein 7.2 g/dL (6.6-8.7) 05/07/23 21:00 Albumin 4.3 g/dL (3.5-5.2) 05/07/23 21:00 Globulin 2.9 g/dL (1.3-4.6) 05/07/23 21:00 Fluid Crystals Sent to path 05/07/23 22:29 Synovial Color Slight pink (PALE YELLOW) 05/07/23 22:21 Synovial Appearance Cloudy (CLEAR) 05/07/23 22:21 Synovial WBC 3393 /uL (0-150) H 05/07/23 22:21 Synovial RBC 19 10^3/uL (0-0) H 05/07/23 22:21 Synovial Mononuclear 1.008 10^3/uL 05/07/23 22:21 Synov Polynuclear WBCs 2.385 10^3/uL 05/07/23 22:21 Synovial Other Cells Not Reportable 05/07/23 22:21 Synovial Polynuclear % 70.300 % 05/07/23 22:21 Synovial Mononuclear % 29.700 % 05/07/23 22:21 Path Cons w/Slide Yes 05/07/23 22:21 XR interpretation done by ED provider, pending radiology final review Discharge Plan Discharge Patient Disposition: Placed in Observation Admit Provider: Medhat Moseley Clinical Impression: Fever, Knee swelling, Arthritis Coding Level of Care Code ED Clean In Places Operator for Melly Santacruz
[2023-05-07 21:23] LABS: Alanine Aminotransferase 16 U/L (0-41); Albumin Level 4.3 g/dL (3.5-5.2); Alkaline Phosphatase 58 U/L (40-130); Anion Gap 16.4 (5-19); Aspartate Amino Transferase 14 U/L (0-40); Blood Urea Nitrogen 24 mg/dL (8-23); Carbon Dioxide 23 mmol/L (22-29); Chloride 101 mmol/L (98-107); Globulin 2.9 g/dL (1.3-4.6); Glomerular Filtration Rate 84.2 mL/min (90-130); Glucose 108 mg/dL (65-115); Osmolality Calculated 287 mOsm/kg (285-295); Potassium 4.4 mmol/L (3.5-5.1); Sodium 136 mmol/L (136-145); Total Bilirubin 0.5 mg/dL (0.15-1.2); Total Protein 7.2 g/dL (6.6-8.7); Uric Acid 5.6 mg/dL (3.4-7.0)
[2023-05-07] MEDS: ketorolac 30 mg/mL INJ IM (21:31)
[2023-05-07 22:39] VITALS: BP 124/83; PULSE 71; O2SAT 94
[2023-05-07] MEDS: acetaminophen 500 mg Tablet 1000 MG PO (22:51)
[2023-05-07] MEDS: cefTRIAXone 1,000 MG in sodium chloride 0.9% (plus) 50 ML 100 MG IV (22:52)
[2023-05-07] MEDS: lidocaine 2% INJ 20 mL INJECTION (22:56)
[2023-05-07 23:03] LABS: RBC Synovial Fluid 19 10^3/uL (0-0); Synovial Fluid Mononuclear # 1.008 10^3/uL; Synovial Fluid Polynuclear # 2.385 10^3/uL; WBC Synovial Fluid 3393 /uL (0-150)
[2023-05-07] MEDS: vancomycin 1,500 MG/300 ML PIGGYBACK 200 MG IV (23:04)
[2023-05-07 23:06] LABS: Appearance Synovial Fluid CLOUDY (CLEAR); Color Synovial Fluid SLIGHT PINK (PALE YELLOW); PATH Referal YES
[2023-05-07 23:40] LABS: Crystals, Fluid SENT TO PATH
[2023-05-07 23:48] VITALS: BP 116/74; PULSE 66; RESP 16; O2SAT 94
[2023-05-08] VITALS (8 sets, daily range): BP systolic 110–133; BP diastolic 69–78; PULSE 59–84; RESP 16–20; TEMP 36.6–38.1; O2SAT 92–95
--- NOTE | 2023-05-08 02:42 | PM.HP ---
Providers/Chief Complaint Admitting Physician: Medhat Moseley Primary Care Provider: Sarah Perry MD Chief Complaint: right knee swelling, fever History of Present Illness Pleasant 67-year-old gentleman presented with tender swollen warm erythematous right knee in ER spiking a fever of 100.3. X-ray with minimal degenerative changes, no fracture. Arthrocentesis with cloudy fluid, 3393 WBC, 19 RBC, 70% PMN. Fluid sent off to micro. Received vancomycin, ceftriaxone with possibility of septic arthritis and orthopedic service was consulted. Review of Systems Const: Reports: fever(s); Denies: chills, body aches or malaise ENMT: Denies: throat pain Card: Denies: chest pain, edema, pre-syncope or dyspnea on exertion Resp: Denies: dyspnea, productive cough, change in phlegm color or hemoptysis GI: Denies: abdominal pain, nausea, vomiting, diarrhea, constipation, hematochezia or melena : Denies: flank pain, difficulty urinating, urinary frequency or hematuria Musc: Reports: joint pain, joint swelling, joint redness and joint warmth; Denies: back pain Skin/Breast: Denies: rash or new lesions Medications/Allergies Home Medications Medication Instructions Recorded Confirmed Last Taken Type aspirin 81 mg tablet,delayed 81 mg PO DAILY 01/28/21 05/08/23 Unknown History release (Adult Aspirin Regimen) simvastatin 10 mg tablet 10 mg PO .HS 01/28/21 05/08/23 Unknown History Allergies Allergy/AdvReac Type Severity Reaction Status Date / Time No Known Allergies Allergy Verified 03/18/22 08:57 PFSH Acute PFSH: Medical History Never smoker Renal cyst, right Right adrenal mass Small, no evidence of functional component, 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 Surgical History History of hernia repair Hx of right inguinal hernia repair Family History Brother Cancer Father , at age 78 Heart disease Mother , at age 60 Stroke Social History Smoking and tobacco/nicotine status: never used tobacco/nicotine Alcohol intake: never Marital status: Current occupational status: retired Vitals/I&O/Wt Last Vital Signs Temp 97.8 F 05/08/23 00:15 Pulse 63 05/08/23 00:15 Resp 19 H 05/08/23 00:15 BP 119/72 05/08/23 00:15 Pulse Ox 93 05/08/23 00:15 O2 Del Method Room Air 05/08/23 00:12 05/07/23 05/07/23 05/08/23 14:59 22:59 06:59 Intake Total 350 / 350 Balance 350 / 350 Weight last 48 hrs Weight 92.533 kg Physical Exam Narrative: Accompanied by his daughter Const: COMMON NORMALS: patient oriented x3 and alert GENERAL APPEARANCE: cooperative ORIENTATION/CONSCIOUSNESS: Yes awake HENMT: COMMON NORMALS: oropharynx normal Neck/C-Spine: COMMON NORMALS: no JVD Resp: COMMON NORMALS: normal respiratory effort and clear to auscultation bilaterally AUSCULTATION: clear to auscultation bilaterally Cardio: COMMON NORMALS: no JVD, regular rhythm, S1 normal heart sound present, S2 normal heart sound present and No murmurs present (Cardio) RHYTHM: regular rhythm HEART SOUNDS: S1 normal heart sound present and S2 normal heart sound present GI: COMMON NORMALS: Normal to inspection, nondistended, normoactive bowel sounds present, Soft to palpation and non-tender PALPATION: Yes Soft to palpation Extremity: COMMON NORMALS: no joint enlargement and no pedal edema OTHER: R knee swollen, tender, warm to touch with mild erythema Neuro: COMMON NORMALS: patient oriented x3 and moves all extremities SENSORIUM/ORIENTATION: Yes alert Skin: COMMON NORMALS: no rashes or lesions noted GENERAL SKIN EXAM: no rashes or lesions noted Data 05/07/23 21:00 05/07/23 21:00 Micro: Microbiology 05/07/23 22:40 Blood Culture - Preliminary Blood SPECIMEN COLLECTED 05/07/23 22:40 Blood Culture - Preliminary Blood SPECIMEN COLLECTED A&P Assessment and plan (1) Knee swelling: Inflammatory versus infectious changes in the right knee with erythema, swelling, warmth, tenderness, inflammatory fluid, leaning more towards inflammatory/possible crystal arthropathy, but still cannot exclude infection at this time. Gram stain not available. Reviewed vitals, had a fever 102.3F. Started on vancomycin, ceftriaxone empirically for now. Pending orthopedic assessment. Follow-up Gram stain. Requested assessment for crystals as well. Discussed with him potentially disabling risks in case of septic arthritis which needs to be excluded. He tells me that he has had something similar happen to him before. 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 Reviewed vitals, CBC, CMP, synovial fluid analysis, knee x-ray, discussed with ER physician, ER documentation reviewed. (2) Fever: As above. Plan Right adrenal mass: Has been following with urology. Note reviewed. Noted plans for follow-up CT. Attestations Medical Necessity Statement*: admission of over 2 midnights anticipated for assessment management of possible septic arthritis of the right knee. Diagnoses Knee swelling M25.469 Fever R50.9
--- NOTE | 2023-05-08 07:36 | P.CONIM_ITS ---
Providers/Reason For Consult Consulting Physician/Specialty*: hospitalist Reason for Consult*: right knee swelling Attending Physician: Medhat Moseley Primary Care Provider: Sarah Perry MD History of Present Illness History of Present Illness Renaldo Lopez is a 67 year old male we were asked to consult for knee swelling. WBC in knee aspirate were elevated. Currently he has no pain and full range of motion of the knee. The knee does not have any redness Review of Systems Const: Reports: fever(s); Denies: chills, body aches or malaise ENMT: Denies: throat pain Card: Denies: chest pain, edema, pre-syncope or dyspnea on exertion Resp: Denies: dyspnea, productive cough, change in phlegm color or hemoptysis GI: Denies: abdominal pain, nausea, vomiting, diarrhea, constipation, hematochezia or melena : Denies: flank pain, difficulty urinating, urinary frequency or hematuria Musc: Reports: joint pain, joint swelling, joint redness and joint warmth; Denies: back pain Skin/Breast: Denies: rash or new lesions Medications/Allergies Home Medications Medication Instructions Recorded Confirmed Last Taken Type aspirin 81 mg tablet,delayed 81 mg PO DAILY 01/28/21 05/08/23 Unknown History release (Adult Aspirin Regimen) simvastatin 10 mg tablet 10 mg PO .HS 01/28/21 05/08/23 Unknown History Allergies Allergy/AdvReac Type Severity Reaction Status Date / Time No Known Allergies Allergy Verified 03/18/22 08:57 PFSH Acute PFSH: Medical History Never smoker Renal cyst, right Right adrenal mass Small, no evidence of functional component, no significant exchange engineer time with serial imaging. Surgical History History of hernia repair Hx of right inguinal hernia repair Family History Brother Cancer Father , at age 78 Heart disease Mother , at age 60 Stroke Social History Smoking and tobacco/nicotine status: never used tobacco/nicotine Alcohol intake: never Marital status: Current occupational status: retired Vitals/I&O/Wt Last Vital Signs Temp 98.0 F 05/08/23 07:06 Pulse 59 L 05/08/23 07:06 Resp 16 05/08/23 07:06 BP 123/78 05/08/23 07:06 Pulse Ox 95 05/08/23 07:06 O2 Del Method Room Air 05/08/23 07:06 05/07/23 05/08/23 05/08/23 22:59 06:59 14:59 Intake Total 350 / 350 Balance 350 / 350 Weight last 48 hrs Weight 204 lb Physical Exam Narrative: right knee has full ROM no swelling or erythema Data 05/07/23 21:00 05/07/23 21:00 Micro: Microbiology 05/07/23 22:40 Blood Culture - Preliminary Blood SPECIMEN COLLECTED 05/07/23 22:40 Blood Culture - Preliminary Blood SPECIMEN COLLECTED A&P Assessment and plan (1) Knee swelling: Will wait for cultures. Clinically he does not present with a septic knee at this time Consult Attestations Medical Necessity Statement: per primary service Coding Level of Care Code Acute Code for Chg Fwd Diagnoses Knee swelling M25.469
[2023-05-08] MEDS: vancomycin 1,500 MG/300 ML PIGGYBACK 200 MG IV (13:57)
--- NOTE | 2023-05-08 13:57 | PM.PN ---
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, and he works on his knees, and a lot of his friends, gets similar symptoms with her knees, so he does not think that his knee symptoms are that significant he does not think it is an infection, he tells me that this is happened before, denies any nausea, vomiting, denies any pain, denies a prior history of gout or gouty attacks, no history of alcoholism, Vitals/I&O/Wt Last Vital Signs Temp 98.1 F 05/08/23 10:47 Pulse 67 05/08/23 10:47 Resp 17 05/08/23 10:47 BP 133/77 05/08/23 10:47 Pulse Ox 94 05/08/23 10:47 O2 Del Method Room Air 05/08/23 10:47 05/07/23 05/08/23 05/08/23 22:59 06:59 14:59 Intake Total 350 / 350 240 / 240 Balance 350 / 350 240 / 240 Weight last 48 hrs Weight 92.533 kg Physical Exam Const: COMMON NORMALS: no acute distress and patient oriented x3 Resp: COMMON NORMALS: normal respiratory effort, No retractions, No use of accessory muscles and clear to auscultation bilaterally AUSCULTATION: clear to auscultation bilaterally Cardio: COMMON NORMALS: regular rate, regular rhythm, S1 normal heart sound present and S2 normal heart sound present RATE: regular rate RHYTHM: regular rhythm HEART SOUNDS: S1 normal heart sound present and S2 normal heart sound present GI: COMMON NORMALS: Normal to inspection, nondistended, normoactive bowel sounds present and non-tender Extremity: COMMON NORMALS: no pedal edema NARRATIVE EXTREMITY EXAM: On examination, right knee no significant erythema, swelling, no significant tenderness, good range of motion Neuro: COMMON NORMALS: patient oriented x3 Psych: COMMON NORMALS: mental status grossly normal Data 05/07/23 21:00 05/07/23 21:00 Micro: Microbiology 05/07/23 22:40 Blood Culture - Preliminary Blood SPECIMEN COLLECTED 05/07/23 22:40 Blood Culture - Preliminary Blood SPECIMEN COLLECTED A&P Assessment and plan (1) Knee swelling: - 3393 WBCs, 2385 PMN, 70.3 PMN, ? Uric acid 5.6, ? Gram stain no organisms, few WBCs, ? We will order uric acid levels, ESR, CRP, Pro-Nathan ? We will order crystal fluid analysis from fluid, ? Follow synovial fluid cultures, so far negative, ? Continue vancomycin, Rocephin, ? Continue to clinically monitor, ? Full code ? Lovenox for DVT prophylaxis ? Orthopedic service consulted (2) Fever: . Currently afebrile Plan Right adrenal mass: Has been following with urology. Note reviewed. Noted plans for follow-up CT. Attestations Medical Necessity Statement*: Patient requires hospitalization for right knee swelling, concern for possible septic arthritis although likely gout, pseudogout, managed with antibiotic therapy, orthopedic service consulted Diagnoses Knee swelling M25.469 Fever R50.9
[2023-05-08 14:23] LABS: C Reactive Protein 45.3 mg/L (0.0-4.9); Uric Acid 5.5 mg/dL (3.4-7.0)
[2023-05-08 14:30] LABS: Procalcitonin 0.07 ng/mL (0-0.5)
[2023-05-08 14:32] LABS: Erythrocyte Sedimentation Rate 18 mm/hr (0-10)
[2023-05-08] MEDS: enoxaparin 40 mg/0.4 mL Syringe SUBCUT (17:11)
[2023-05-08] MEDS: atorvastatin 40 mg Tablet 20 MG PO (20:57)
[2023-05-08] MEDS: cefTRIAXone 1,000 MG in sodium chloride 0.9% (plus) 50 ML 100 MG IV (20:59)
[2023-05-09] MEDS: vancomycin 1,500 MG/300 ML PIGGYBACK 200 MG IV ×2 (00:25→13:41)
[2023-05-09 03:35] VITALS: BP 126/77; PULSE 67; RESP 20; TEMP 37.4; O2SAT 93
[2023-05-09 04:42] LABS: Basophils % 0.3 %; Eosinophils # 0.3 10^3/uL (0.0-0.8); Eosinophils % 3.5 %; Hematocrit 44.9 % (37-53); Lymphocytes # 1.4 10^3/uL (0.8-4.8); Lymphocytes % 14.7 %; Mean Corpuscular HGB Conc 32.7 g/dL (30-55); Mean Corpuscular Hemoglobin 28.9 pg (27-33); Mean Corpuscular Volume 88.2 fl (82-101); Mean Platelet Volume 9.3 fL (7.4-10.4); Monocytes # 1.2 10^3/uL (0.2-0.9); Monocytes % 13.1 %; Neutrophils # 6.38 10^3/uL (1.8-7.7); Neutrophils % 68.1 %; Nucleated Red Blood Cells % 0 %; Platelet Count 276 10^3/cmm (157-399); Red Blood Count 5.09 10^6/uL (3.85-5.65); Red Cell Distribution Width 12.4 % (12.1-15.1); White Blood Count 9.38 10^3/uL (3.29-11.43)
[2023-05-09 05:12] LABS: Anion Gap 13.2 (5-19); Blood Urea Nitrogen 17 mg/dL (8-23); Calcium 8.8 mg/dL (8.5-10.5); Carbon Dioxide 22 mmol/L (22-29); Chloride 105 mmol/L (98-107); Glomerular Filtration Rate 96.4 mL/min (90-130); Glucose 119 mg/dL (65-115); Osmolality Calculated 285 mOsm/kg (285-295); Potassium 4.2 mmol/L (3.5-5.1); Sodium 136 mmol/L (136-145)
[2023-05-09 07:40] VITALS: BP 124/72; PULSE 62; RESP 17; TEMP 36.8; O2SAT 92
[2023-05-09] MEDS: aspirin 81 mg EC Tablet PO (09:03)
[2023-05-09 11:59] LABS: Glucose Point of Care 127 mg/dL (70-110)
[2023-05-09 12:00] VITALS: BP 137/84; PULSE 68; RESP 16; TEMP 36.7; O2SAT 94
[2023-05-09 12:26] LABS: Vancomycin Trough 10.5 ug/mL (10-15)
--- NOTE | 2023-05-09 12:27 | P.TS_ITS ---
Transfer Summary Providers Date of Admission: 05/07/23 23:28 Date of Discharge/Transfer: 05/09/23 Attending Provider at Admission: Medhat Moseley Attending Provider at Transfer: Yung Ramey MD Primary Care Provider: Sarah Perry MD Transfer Plans: Anticipated date of transfer: 05/09/23 . Diagnoses at Discharge Discharge Diagnosis (1) Knee swelling: Status: Acute (2) Fever: Status: Acute Reason for Visit Reason for Visit right knee swelling, fever Hospital Course Hospital Course Pleasant 67-year-old gentleman presented with tender swollen warm erythematous right knee in ER spiking a fever of 100.3.? X-ray with minimal degenerative changes, no fracture.? Arthrocentesis with cloudy fluid, 3393 WBC, 19 RBC, 70% PMN.? Fluid sent off to micro.? Received vancomycin, ceftriaxone with possibility of septic arthritis and orthopedic service was consulted Patient was admitted to [facility] for right knee swelling, concerns for septic arthritis, versus gout,, patient has had right knee swelling before, roughly 15 years ago, he developed right knee swelling, and he had steroids injected into his knee which significantly helped, possibly a gouty attack. Patient works on his knees, and he tells me that its not infrequent his friends will start to develop right knee swelling, typically improving with steroids. Initially he did have a fever episode in the emergency room, white blood cell count within normal limits, ESR 18, no significant inflammatory marker elevation, CRP was 45.3, blood cultures were negative, initially his Gram stain showed WBCs no organisms, overall he was clinically improving. Patient was seen the morning of 05/09/2023, with daughter present at bedside, using Cambodian dredge mate, I thoroughly examined the right knee, this morning it looks more swollen red, hot, erythematous, than examinatio yesterday with tracking along medial knee joint, he feels fine he tells me, no fever overnigiht, I went over his synovial fluid culture results, initially they had shown coagulase positive staphylococci in the AM 04/27/2023, the question was is this a real infection or not, later the synovial cultures were revised to show that in fact it was Staph aureus. Given current clinical picture, clinical examination, positive Staph aureus cultures in synovial fluid, and that he did have a febrile episode yesterday at 100.7 this is highly suspicious that this is septic knee joint. I discussed with orthopedic service, the plan was to do surgical debridement in the afternoon. However patient and daughter at bedside wanted patient to be transferred to [facility] for surgical intervention. I discussed with him delaying surgery, would be associated morbidity and mortality, worsening of the septic knee joint, he could possibly lose his right knee joint. After discussing the risk and benefits, they voiced understanding, all questions answered, for now they would patient to be transferred to [facility] for surgical intervention. For now I will continue IV antibiotics vancomycin and Rocephin which were started on admission and I will continue for now. Likely once he has surgical intervention, he will likely need 6 weeks of IV antibiotics and follow-up with infectious disease. He does have type 2 diabetes his A1c was 6.5 he will likely need insulin therapy for tight control of his blood sugars. Physical Exam Const: COMMON NORMALS: no acute distress and patient oriented x3 Resp: COMMON NORMALS: normal respiratory effort, No retractions, No use of accessory muscles and clear to auscultation bilaterally AUSCULTATION: clear to auscultation bilaterally Cardio: COMMON NORMALS: regular rate, regular rhythm, S1 normal heart sound present and S2 normal heart sound present RATE: regular rate RHYTHM: regular rhythm HEART SOUNDS: S1 normal heart sound present and S2 normal heart sound present GI: COMMON NORMALS: Normal to inspection, nondistended, normoactive bowel sounds present, Soft to palpation and non-tender PALPATION: Yes Soft to palpation Extremity: COMMON NORMALS: no pedal edema Neuro: COMMON NORMALS: patient oriented x3 Psych: COMMON NORMALS: mental status grossly normal TS Data Studies Completed and Pending Pending at discharge Category Date Time Status Blood Culture Stat Lab 05/07/23 22:40 Results Body Fluid Culture Stat Lab 05/07/23 22:29 Results Crystals, Fluid Routine Lab 05/08/23 14:01 Ordered Completed Studies During Hospitalization Category Date Time Status XR knee RT 3V* [id number] Stat Exams 05/07/23 20:42 Completed Laboratory Last Values WBC 9.38 10^3/uL (3.29-11.43) 05/09/23 03:46 RBC 5.09 10^6/uL (3.85-5.65) 05/09/23 03:46 Hgb 14.70 g/dL (11.27-16.99) 05/09/23 03:46 Hct 44.9 % (37-53) 05/09/23 03:46 MCV 88.2 fl (82-101) 05/09/23 03:46 MCH 28.9 pg (27-33) 05/09/23 03:46 MCHC 32.7 g/dL (30-55) 05/09/23 03:46 RDW 12.4 % (12.1-15.1) 05/09/23 03:46 Plt Count 276 10^3/cmm (157-399) 05/09/23 03:46 MPV 9.3 fL (7.4-10.4) 05/09/23 03:46 Neut % (Auto) 68.1 % 05/09/23 03:46 Lymph % (Auto) 14.7 % 05/09/23 03:46 Carson % (Auto) 13.1 % 05/09/23 03:46 Eos % (Auto) 3.5 % 05/09/23 03:46 Baso % (Auto) 0.3 % 05/09/23 03:46 Neut # (Auto) 6.38 10^3/uL (1.8-7.7) 05/09/23 03:46 Lymph # (Auto) 1.4 10^3/uL (0.8-4.8) 05/09/23 03:46 Carson # (Auto) 1.2 10^3/uL (0.2-0.9) H 05/09/23 03:46 Eos # (Auto) 0.3 10^3/uL (0.0-0.8) 05/09/23 03:46 Baso # (Auto) 0.0 10^3/uL (0.0-0.1) 05/09/23 03:46 Nucleated RBC % (auto) 0 % 05/09/23 03:46 Nucleated RBCs # 0.0 /100WBC 05/09/23 03:46 ESR 18 mm/hr (0-10) H 05/07/23 21:00 Sodium 136 mmol/L (136-145) 05/09/23 03:46 Potassium 4.2 mmol/L (3.5-5.1) 05/09/23 03:46 Chloride 105 mmol/L (98-107) 05/09/23 03:46 Carbon Dioxide 22 mmol/L (22-29) 05/09/23 03:46 Anion Gap 13.2 (5-19) 05/09/23 03:46 BUN 17 mg/dL (8-23) 05/09/23 03:46 Creatinine 0.8 mg/dL (0.7-1.2) 05/09/23 03:46 GFR Calculation 96.4 mL/min (90-130) 05/09/23 03:46 Glucose 119 mg/dL (65-115) H 05/09/23 03:46 POC Glucose 127 mg/dL (70-110) H 05/09/23 11:56 Calculated Osmolality 285 mOsm/kg (285-295) 05/09/23 03:46 Uric Acid 5.5 mg/dL (3.4-7.0) 05/07/23 21:00 Uric Acid 5.6 mg/dL (3.4-7.0) 05/07/23 21:00 Calcium 8.8 mg/dL (8.5-10.5) 05/09/23 03:46 Total Bilirubin 0.5 mg/dL (0.15-1.2) 05/07/23 21:00 AST 14 U/L (0-40) 05/07/23 21:00 ALT 16 U/L (0-41) 05/07/23 21:00 Alkaline Phosphatase 58 U/L (40-130) 05/07/23 21:00 C-Reactive Protein 45.3 mg/L (0.0-4.9) H 05/07/23 21:00 Total Protein 7.2 g/dL (6.6-8.7) 05/07/23 21:00 Albumin 4.3 g/dL (3.5-5.2) 05/07/23 21:00 Globulin 2.9 g/dL (1.3-4.6) 05/07/23 21:00 Procalcitonin 0.07 ng/mL (0-0.5) 05/07/23 21:00 Fluid Crystals Sent to path 05/07/23 22:29 Synovial Color Slight pink (PALE YELLOW) 05/07/23 22:21 Synovial Appearance Cloudy (CLEAR) 05/07/23 22:21 Synovial WBC 3393 /uL (0-150) H 05/07/23 22:21 Synovial RBC 19 10^3/uL (0-0) H 05/07/23 22:21 Synovial Mononuclear 1.008 10^3/uL 05/07/23 22:21 Synov Polynuclear WBCs 2.385 10^3/uL 05/07/23 22:21 Synovial Other Cells Not Reportable 05/07/23 22:21 Synovial Polynuclear % 70.300 % 05/07/23 22:21 Synovial Mononuclear % 29.700 % 05/07/23 22:21 Vancomycin Trough 10.5 ug/mL (10-15) 05/09/23 11:59 Path Cons w/Slide Yes 05/07/23 22:21 Radiology Impressions Knee X-Ray 05/07/23 20:42 IMPRESSION: Minimal degenerative change. No fracture or acute osseous abnormality. Recent Clincial Data Last Vital Signs Temp 98.0 F 05/09/23 12:00 Pulse 68 05/09/23 12:00 Resp 16 05/09/23 12:00 BP 137/84 05/09/23 12:00 Pulse Ox 94 05/09/23 12:00 O2 Del Method Room Air 05/09/23 12:00 Vital Signs Temp Pulse Resp BP Pulse Ox O2 Del Method 05/09/23 12:00 98.0 F 68 16 137/84 94 Room Air 05/09/23 07:40 98.2 F 62 17 124/72 92 Room Air 05/09/23 03:35 99.3 F 67 20 H 126/77 93 Intake & Output/Weight 05/07/23 05/08/23 05/09/23 05/10/23 06:59 06:59 06:59 06:59 Intake Total 350 / 350 2210 / 2210 240 / 240 Balance 350 / 350 2210 / 2210 240 / 240 Weight 92.533 kg Vitals Last Vital Signs Temp 98.0 F 05/09/23 12:00 Pulse 68 05/09/23 12:00 Resp 16 05/09/23 12:00 BP 137/84 05/09/23 12:00 Pulse Ox 94 05/09/23 12:00 O2 Del Method Room Air 05/09/23 12:00 TS Medications Medications Acetaminophen (Acetaminophen 325 Mg Tablet) 650 mg PO Q6H PRN PRN Reason: Mild/Mod Pain Or Temp >/= 101 Aspirin (Aspirin 81 Mg Ec Tablet) 81 mg PO DAILY [facility] Last Admin: 05/09/23 09:03 Dose: 81 mg Atorvastatin Calcium (Atorvastatin 40 Mg Tablet) 20 mg PO BEDTIME [facility] Dextrose (Dextrose 50% Syringe 50 Ml) 50 ml IVP PRN PRN; Protocol PRN Reason: hypoglycemia protocol Dextrose (Dextrose 50% Syringe 50 Ml) 25 ml IVP ONCE PRN; Protocol PRN Reason: hypoglycemia protocol Enoxaparin Sodium (Enoxaparin 40 Mg/0.4 Ml Syringe) 40 mg SUBCUT Q24H [facility] Last Admin: 05/08/23 17:11 Dose: 40 mg Glucagon (Glucagon 1 Mg/Ml Inj 1 Ml) 1 mg IM ONCE PRN; Protocol PRN Reason: Adult Acute Hypoglycemia Prot. Ceftriaxone Sodium 1,000 mg/ (Sodium Chloride) 50 mls @ 100 mls/hr IV Q24H [facility]; Protocol Last Infusion: 05/08/23 21:35 Dose: Infused Vancomycin/PEG/NADA/Lysine/Water (Vancocin) 1,500 mg in 300 mls @ 200 mls/hr IV Q12H [facility] Last Infusion: 05/09/23 02:05 Dose: Infused Dextrose (D5w) 500 mls @ 100 mls/hr IV ONCE PRN; Protocol PRN Reason: Adult Acute Hypoglycemia Prot Insulin Human Lispro (Insulin Lispro 100 Unit/1 Ml) 0 unit SUBCUT TIDWM [facility]; Protocol Ondansetron HCl (Ondansetron 2 Mg/Ml Sdv 2 Ml) 4 mg IVP Q8H PRN PRN Reason: vomiting, or N/V if npo Discontinued Medications Acetaminophen (Acetaminophen 500 Mg Tablet) 1,000 mg PO ONCE ONE Stop: 05/07/23 22:12 Last Admin: 05/07/23 22:51 Dose: 1,000 mg Atorvastatin Calcium (Atorvastatin 40 Mg Tablet) 20 mg PO DAILY [facility] Last Admin: 05/08/23 20:57 Dose: 20 mg Vancomycin/PEG/NADA/Lysine/Water (Vancocin) 1,500 mg in 300 mls @ 200 mls/hr IV ONCE ONE; Protocol Stop: 05/07/23 23:40 Last Infusion: 05/08/23 01:15 Dose: Infused Ceftriaxone Sodium 1,000 mg/ (Sodium Chloride) 50 mls @ 100 mls/hr IV ONCE ONE; Protocol Stop: 05/07/23 22:49 Last Infusion: 05/07/23 23:48 Dose: Infused Vancomycin HCl / Sodium (Chloride) 250 mls @ 0 mls/hr [id number] PROTOCOL RICHELLE; Protocol Ketorolac Tromethamine (Ketorolac 30 Mg/Ml Inj) 15 mg IVP ONCE ONE Stop: 05/07/23 20:49 Last Admin: 05/07/23 21:28 Dose: Not Given Ketorolac Tromethamine (Ketorolac 30 Mg/Ml Inj) 30 mg IM ONCE ONE Stop: 05/07/23 21:30 Last Admin: 05/07/23 21:31 Dose: 30 mg Lidocaine HCl (Lidocaine 2% Inj 20 Ml) 20 ml INJECTION ONCE ONE Stop: 05/07/23 22:31 Last Increment: 05/07/23 22:56 Dose: 10 ml Incremental Dosing Total Given: 10 ml Pharmacy Profile Note (Formulary Statin) each PO .[facility] Allergies No Known Allergies Allergy (Verified 03/18/22 08:57) Home Medications aspirin 81 mg tablet,delayed release (Adult Aspirin Regimen) 81 mg PO DAILY 01/28/21 [History Confirmed 05/08/23] simvastatin 10 mg tablet 10 mg PO .HS 01/28/21 [History Confirmed 05/08/23] Discharge Plan Discharge Patient Disposition: Home Condition: Stable Prescriptions: No Action simvastatin 10 mg tablet 10 mg PO . aspirin [Adult Aspirin Regimen] 81 mg tablet,delayed release (DR/EC) 81 mg PO DAILY Discharge Orders: Transfer Out of Facility (Order); Ordered 05/09/23 Ordered By: Yung Ramey Referrals: Sarah Perry MD [Primary Care Provider] - Patient Instructions: Opioid Safety Transfer Attestations Time Spent in Transfer Care: greater than 30 min Quality Metrics Clinical Quality Measures [ No reported AMI, CVA or VTE this stay] Coding Level of Care Code Acute Code for Chg Fwd Diagnoses Knee swelling M25.469 Fever R50.9
--- NOTE | 2023-05-09 13:51 | PC.NURSE ---
Addendum entered by Fatemeh Hassan RN 05/09/23 13:52: NIKI Ha Coordinator called with bed assignment. Original Note: Lilian called with Bed going to Third floor 3C room 3209 phone number to call report is [phone].
--- NOTE | 2023-05-09 14:31 | PC.NURSE ---
Report called to KIRK Morales at [facility]. Pt will be going to Bed 3209 on 3[address] floor. Daughter and pt notified.
--- NOTE | 2023-05-09 15:08 | PC.SOCIAL ---
IMM Update pg 2 of IMM updated and reviewed w/ patient and his daughter. Copy provided and copy dated, initialed and placed in chart.
[2023-05-09 16:00] VITALS: BP 137/87; PULSE 66; RESP 16; TEMP 37; O2SAT 95
[2023-05-09 16:28] LABS: Glucose Point of Care 91 mg/dL (70-110)
[2023-05-09 18:53] VITALS: BP 137/87; PULSE 66; RESP 16; TEMP 37; O2SAT 95
== END 2023-05-09 16:00 | disposition short-term general hospital (02) | DRG 550 ==
LOC: ER 23:36 → MEDSURG 23:47
PROVIDERS: Admitting Provider Internal Medicine; Emergency Provider Family Medicine; PCP Internal Medicine; Visit Provider Family Medicine
DX: M00.061 Staphylococcal arthritis, right knee (principal); E11.9 Type 2 diabetes mellitus without complications; E27.9 Disorder of adrenal gland, unspecified; Z79.82 Long term (current) use of aspirin; Z79.4 Long term (current) use of insulin
CPT/HCPCS: 20610; 36415; 36416; 73562; 80048; 80053; 80202; 80503; 82962; 84145; 84550; 85025; 85651; 86140; 87040; 87070; 87075; 87077; 87186; 87205; 89050; 96365; 96367; 96372; 99285; J0696; J1650; J1885; J3370

== ENCOUNTER 2023-05-25 12:43 | Outpatient (CLI) | payer MEDICARE, MEDICAID, SELFPAY ==
[2023-05-25 13:42] LABS: Basophils % 0.5 %; Eosinophils # 0.3 10^3/uL (0.0-0.8); Eosinophils % 3.1 %; Hematocrit 39.4 % (37-53); Lymphocytes # 1.4 10^3/uL (0.8-4.8); Lymphocytes % 17.1 %; Mean Corpuscular Hemoglobin 28.4 pg (27-33); Mean Corpuscular Volume 88.7 fl (82-101); Mean Platelet Volume 9.3 fL (7.4-10.4); Monocytes # 0.7 10^3/uL (0.2-0.9); Neutrophils # 5.62 10^3/uL (1.8-7.7); Neutrophils % 70.1 %; Nucleated Red Blood Cells % 0 %; Platelet Count 412 10^3/cmm (157-399); Red Blood Count 4.44 10^6/uL (3.85-5.65); Red Cell Distribution Width 13.2 % (12.1-15.1); White Blood Count 8.02 10^3/uL (3.29-11.43)
[2023-05-25 13:57] LABS: Alanine Aminotransferase 17 U/L (0-41); Albumin Level 3.9 g/dL (3.5-5.2); Alkaline Phosphatase 73 U/L (40-130); Anion Gap 15.4 (5-19); Aspartate Amino Transferase 20 U/L (0-40); Blood Urea Nitrogen 15 mg/dL (8-23); C Reactive Protein 3.2 mg/L (0.0-4.9); Calcium 9.4 mg/dL (8.5-10.5); Carbon Dioxide 26 mmol/L (22-29); Chloride 100 mmol/L (98-107); Globulin 2.9 g/dL (1.3-4.6); Glomerular Filtration Rate 134.4 mL/min (90-130); Glucose 134 mg/dL (65-115); Osmolality Calculated 287 mOsm/kg (285-295); Potassium 4.4 mmol/L (3.5-5.1); Sodium 137 mmol/L (136-145); Total Bilirubin 0.3 mg/dL (0.15-1.2); Total Protein 6.8 g/dL (6.6-8.7)
[2023-05-25 14:58] LABS: Erythrocyte Sedimentation Rate 27 mm/hr (0-10)
== END 2023-05-25 12:44 | disposition home or self-care (01) ==
PROVIDERS: PCP Internal Medicine; Visit Provider Student in an Organized Health Care Education/Training Program
DX: A49.01 Methicillin susceptible Staphylococcus aureus infection, unspecified site (principal)
CPT/HCPCS: 80053; 85025; 85651; 86140

== ENCOUNTER 2024-03-14 10:31 | Outpatient (CLI) | payer MEDICARE, MEDICAID, SELFPAY ==
--- NOTE | 2024-03-14 10:37 | CT_ITS ---
WS: [id number] CT ABDOMEN AND PELVIS WITH CONTRAST HISTORY: ADRENAL ENLARGEMENT TECHNIQUE: Imaging performed of the abdomen and pelvis with IV contrast. Single phase imaging of the abdomen. Coronal and sagittal reformats are submitted. All CT scans at [facility] use at [facility] st one of these dose optimization techniques: automated exposure control; mA and/or kV adjustment per patient size (includes targeted exams where dose is matched to clinical indication); or iterative re construction. IV CONTRAST: Omnipaque 350; 100 mL IV. Oral contrast: No DLP: 590.57 mGy.cm COMPARISON: 03/18/2022, 01/14/2022, 05/30/2020 Lower thorax: Lung bases are clear. Heart is normal size. No hiatal hernia. Liver/biliary system: Normal size with no intrahepatic dilatation. Gallbladder: Normal. No gallstones or wall thickening. No pericholecystic fluid. Pancreas: Normal size pancreas and pancreatic duct. No adjacent inflammation. Spleen: Normal size spleen. No mass or infarct. Adrenal glands: Reidentified is a slightly lobulated mass in the RIGHT adrenal gland measuring 1.4 x 2.2 cm which has been previously described since 05/30/2020 with minimal increase in size. This study was not performed as an adrenal CT protocol therefore washout values could not be obtained. LEFT adre nal gland is normal. Right kidney: Normal size kidney. There is a low-attenuation mass measuring 3.1 cm in the mid RIGHT k idney. Hounsfield units are slightly elevated on this exam. On the prior study from 2020 this mass di d not enhance and is therefore consistent with a mildly complex cyst. Left kidney: Parapelvic cysts as seen on the prior studies. No obstruction. Aorta: Normal. Lymphadenopathy: None. Free fluid: None. GI tract: Stomach is not distended. No small bowel obstruction. Normal appendix. Minimal diverticular disease without acute diverticulitis. Abdominal wall: Fat containing umbilical hernia. Pelvis: Well-distended urinary bladder. Inguinal canals contain fat only. Bones: Unremarkable. CT/CT abdomen pelvis w con* [id number] IMPRESSION: 1. Long-term stability RIGHT adrenal mass measuring 1.4 x 2.2 cm. Mass has bee n present since 2019 with minimal increase in size. This study was not performe d as an adrenal mass CT protocol therefore washout values cannot be obtained. 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 2. Mildly complex cyst RIGHT kidney 3.1 cm. 3. No GI tract obstruction. 4. No free fluid or ascites.
[2024-03-14 11:43] LABS: Blood Urea Nitrogen 19 mg/dL (8-23); Glomerular Filtration Rate 83.9 mL/min (90-130)
[2024-03-14] MEDS: iohexol 350 mg/mL 500 mL Btl (per mL) IV (11:43)
== END 2024-03-14 10:32 | disposition home or self-care (01) ==
LOC: RAD 10:31
PROVIDERS: Radiology Neuroradiology; PCP Internal Medicine; Visit Provider Internal Medicine
DX: D35.01 Benign neoplasm of right adrenal gland (principal); N28.1 Cyst of kidney, acquired; K42.9 Umbilical hernia without obstruction or gangrene
CPT/HCPCS: 74177; 82565; 84520

== ENCOUNTER 2024-07-25 16:04 | Outpatient (CLI) | payer MEDICARE, MEDICAID, SELFPAY ==
--- NOTE | 2024-07-25 16:12 | XR_ITS ---
WS: [id number] Exam: XR chest 2V* [id number] Date/Time of Exam: 07/25/2024 4:12 PM Reason For Exam: DYSPNEA/SOB The lungs are fully expanded. No acute infiltrates noted. Low lung volumes noted secondary to limited inspiration. No pleural effusion or pneumothorax. Normal cardiomediastinal silhouette. Bony structur es are intact. XR/XR chest 2V* [id number] IMPRESSION: 1. No acute cardiopulmonary finding.
== END 2024-07-25 16:05 | disposition home or self-care (01) ==
LOC: RAD 16:07
PROVIDERS: PCP Internal Medicine; Visit Provider Nurse Practitioner Family
DX: R06.02 Shortness of breath (principal); R07.89 Other chest pain; R91.8 Other nonspecific abnormal finding of lung field
CPT/HCPCS: 71046

== ENCOUNTER 2024-08-08 11:57 | Outpatient (CLI) | payer MEDICARE, MEDICAID, SELFPAY ==
--- NOTE | 2024-08-08 | ECG_ITS ---
[email or web address] Test Date: 2024-08-08 Pat Name: Renaldo Lopez Department: Room: Gender: Male Floor Inspector: : 1955 Requested By: Shannon Hair Order Number: [id number] Katie MD: Cyndi Puentes M.D. Interpretive Statements Lung unchanged pre/post procedure; Intraprocedure shortess of breath; Symptoms resoled by discharge PROCEDURE: At the baseline, the patient's blood pressure was 130/77 with a heart rate of 72. The baseline electrocardiogram showed normal sinus rhythm with normal ST-Ts.. The patient exercised for 8 minutes and 45 seconds on a standard Jomar protocol. Patient attained a maximum heart rate of 140 beats per minute(92% of the maximum predicted heart rate) with a blood pressure at the peak exercise of 181/113 mm Hg. The EKG at the peak exercise revealed no significant changes. Patient did not have any chest pain or any significant cardiac arrhythmias with the exercise During the recovery phase, there were no new changes. Blood pressure at the end of the recovery phase was 151/76 mm Hg with a heart rate of 76 per minute. CONCLUSION: 1. Normal EKG response to treadmill exercise 2. No exercise-induced chest pain or cardiac arrhythmia 3. For exercise tolerance, attained a maximum of 10.2 METs Electronically Signed On 08-13-2024 06:27:56 CABLE HOOKER by Cyndi Puentes M.D. [email or web address]
[2024-08-08 12:48] VITALS: BMI 29.8
[2024-08-08 13:34] VITALS: BP 151/76; PULSE 76
== END 2024-08-08 11:58 | disposition home or self-care (01) ==
LOC: CDL 12:00
PROVIDERS: PCP Internal Medicine; Visit Provider Nurse Practitioner Family
DX: R07.9 Chest pain, unspecified (principal)
CPT/HCPCS: 93017

== ENCOUNTER 2024-10-16 13:54 | Outpatient (CLI) | payer MEDICARE, MEDICAID, SELFPAY | END 2024-10-16 13:55 | disposition home or self-care (01) | LOC: SLEEP 13:55 | PROVIDERS: PCP Internal Medicine; Visit Provider Internal Medicine | DX: G47.33 Obstructive sleep apnea (adult) (pediatric) (principal) | CPT/HCPCS: G0399 ==